=== PATIENT | male | born 1965 | race Caucasian/White ===

== ENCOUNTER 2021-05-08 07:12 | Outpatient (CLI) | payer BC, SELFPAY ==
--- NOTE | ~2021-05-08 | MR_ITS ---
EXAMINATION: MR shoulder LT wo con DATE: 05/08/2021 08:01 INDICATION: Unspecified dislocation of the left acromioclavicular joint. Left shoulder pain and limit ed range of motion. TECHNIQUE: Magnetic resonance imaging (MRI) of the left shoulder was performed without intravenous co ntrast. Sequences included axial PD-weighted FS FSE, coronal oblique PD-weighted FS FSE, coronal obli que T2-weighted FS FSE, sagittal PD-weighted FS FSE, and sagittal T1-weighted SE. COMPARISON: None. FINDINGS: Coracoacromial arch: The acromion undersurface is curved in morphology (type II). The coracoacromial ligament is normal. M oderate acromioclavicular osteoarthritis with small joint effusion. The joint capsules patulous both superiorly and posteriorly consistent with given history of prior acromioclavicular joint separation. There is mildly distracted small avulsion fracture involving the capsular attachment along the anter osuperior rim of the head of the clavicle. There is mild associated reactive marrow edema primarily t he lateral clavicle and mild surrounding soft tissue edema. The coracoclavicular ligament remains nor mal. Rotator cuff: Moderate supraspinatus and infraspinatus tendinopathy. Very small full-thickness tear within a few mi llimeter of the superior facet footplate of the supraspinatus tendon which measures approximately 3 m m AP. The teres minor tendon is normal. Mild subscapularis tendinopathy with very small partial-thick ness intrasubstance tear along the lateral lesser tuberosity footplate of the tendon. The flexor doin on of the footplate is proximally 3-4 mm craniocaudal and medial to lateral. Normal rotator cuff musc le bulk and signal. Biceps tendon, glenoid labrum and glenohumeral cartilage: Long head of the biceps tendon is normal. Amorphous increased signal consistent with degeneration at the posterosuperior and anteroinferior glenoid labrum without well-defined linear labral tear plane. Glenohumeral cartilage is normal. Fluid: Physiologic amount of fluid in the glenohumeral joint and biceps tendon sheath. No loose osteochondra l bodies. Small amount of fluid in the subacromial/subdeltoid bursa as well as the subcoracoid bursa which likely results from communication with the glenohumeral joint space through the full-thickness rotator cuff tear. Bones: Normal marrow signal aside from the acromioclavicular joint centered marrow edema. No other fractures or pathologic marrow replacing process. IMPRESSION: 1. Acromioclavicular joint separation with capsular tear, small minimally distracted avulsion capsula r avulsion fracture at the lateral clavicle and moderate sized acromioclavicular joint effusion. 2. Moderate supraspinatus and infraspinatus tendinopathy with very small full-thickness tear at the d istal supraspinatus. 3. Mild subscapularis tendinopathy with very small partial-thickness intrasubstance tear at the later al posterior tuberosity footplate. Reviewed, dictated and finalized at location A. [employer] IMPRESSION: 1. Acromioclavicular joint separation with capsular tear, small minimally distr acted avulsion capsular avulsion fracture at the lateral clavicle and moderate sized acromioclavicular joint effusion. 2. Moderate supraspinatus and infraspinatus tendinopathy with very small full-t hickness tear at the distal supraspinatus. 3. Mild subscapularis tendinopathy with very small partial-thickness intrasubst ance tear at the lateral posterior tuberosity footplate.
== END 2021-05-08 07:13 ==
PROVIDERS: PCP Internal Medicine; Visit Provider Orthopaedic Surgery
DX: S43.102A Unspecified dislocation of left acromioclavicular joint, initial encounter (principal); X58.XXXA Exposure to other specified factors, initial encounter
CPT/HCPCS: 73221

== ENCOUNTER → 2021-06-23 00:36 | Outpatient (CLI) | payer BC, SELFPAY ==
[2021-06-24 10:57] LABS: SARS-CoV-2 RNA PCR Negative
== END ==
PROVIDERS: PCP Internal Medicine; Visit Provider Otolaryngology
DX: Z01.812 Encounter for preprocedural laboratory examination (principal); Z20.822 Contact with and (suspected) exposure to COVID-19
CPT/HCPCS: C9803; U0003; U0005

== ENCOUNTER 2021-06-26 01:18 | Day surgery (SDC) | payer BC, SELFPAY ==
[2021-06-20 14:10] VITALS: BMI 32.3
--- NOTE | 2021-06-20 15:03 | SUR.PREOP ---
Report to the Outpatient Waiting Room, entrance under the green pavilion located off [facility], at time _0615 on date _06/26/21 . OR Time: _08 - A mask is required within the hospital. Preoperative COVID Testing Requirements: No COVID Test needed if: (proof is required; if not received patient will have Rapid Test prior to entry) - Patient has received COVID Vaccine at least 14 days prior to procedure date or - Patient has positive COVID test result within last 90 days of surgery date. COVID Test needed if above criteria is not met If not COVID vaccinated a COVID test must be conducted within 72 hours of surgery and patient is asked to isolate self from time of testing until procedure. You will go to the [facility] for your COVID testing. The [facility] is located at the corner of [address] [facility]. You will only be called if COVID results are positive and your surgeon may reschedule your elective surgery date. Patients may have clear liquids (water, carbonated beverages, clear teas, apple juice) until 3 hours prior to surgery with a maximum of 20 ounces. - No food from midnight until time of surgery - Infants may have breast milk until 4 hours before surgery, infant formula 6 hours prior to surgery. - Children will be allowed to drink immediately following surgery. If applicable, please bring a bottle or sippy cup to assist with drinking. Juice, water, soda, and popsicles are readily available. For infants on formula, please bring formula the day of surgery. Pacifiers are allowed. Take the following medications with a SIP of water the morning of surgery: ___n/a Medications to discontinue per physician n/a Date to take last dose Please no make-up, nail japanese, hairspray, perfume, deodorant, or body powder the day of surgery. No jewelry (including any body piercings) or valuables the day of surgery, leave them at home. Please take a shower or bath the night before, or the morning of, surgery with an antibacterial soap. Wear comfortable, loose fitting clothing. Children are encouraged to wear pajamas. - Jewelry must be removed prior to entering the operating room. Rings and piercings that are not removed may be cut off. - The hospital will not accept responsibility for valuables. - Please leave all valuables, including medications, at home the day of surgery. If you are going home after surgery, a licensed star route mail driver must drive you home. - NO public transportation without another adult. - We recommend that an adult stay with you for 24 hours following discharge. - We also recommend that you do not drive, make important decision, drink alcoholic beverages, or take any drugs that were not prescribed by your health care provider for at least 24 hours after your discharge time. For Pediatric surgeries, we recommend two adults accompany the child home (only one inside the building at this time). Follow any additional instructions given to you from your surgeon. Telephone instructions given to jae coyne___and asked if any additional questions and then verbalized understanding. Patient advised to call surgeon office or pre surgery nurse liaison [phone] if any additional questions.
--- NOTE | 2021-06-23 08:39 | PM.HPGS ---
History of Present Illness History of Present Illness Consent: Risks, benefits, and alternatives have been discussed and questions answered. Patient agrees to proceed with procedure. Chief complaint: mid line neck mass Narrative: Pj Luther is a 56 year old male with a large approximately 6 cm midline lipomatous neck mass Review of Systems Review of Systems: All systems reviewed & are unremarkable except as noted in HPI and below PMFSH Past Medical History Medical History Acromioclavicular joint separation, type 2 Anxiety Claustrophobia Fracture of scaphoid bone of left wrist Hypertension Rotator cuff tear, left Scapholunate advanced collapse of left wrist Wears glasses Surgical History Surgical History History of carpal tunnel release 2019, Dr. Alvarado Family History Family History Sibling Hypertension Patient's brother is in good health Father Patient's father is Mother Family history of premature coronary heart disease, Onset Age: 65 Other Heart disease Social History Social History Smoking status: Never smoker Alcohol intake: former Substance use: never Substance use type: does not use Gender identity (if verbalized by the patient): Male Spiritual care concerns: No Meds Home Medications and Allergies Home Medications Medication Instructions Recorded Confirmed Type lisinopril 20 mg tablet 20 mg PO DAILY 06/17/20 06/20/21 History meloxicam 15 mg tablet 15 mg PO DAILY #30 tablet 07/26/20 06/20/21 Rx fenofibrate 160 mg tablet 160 mg PO DAILY 01/29/21 06/20/21 History oxcarbazepine 150 mg tablet 150 mg PO BID 01/29/21 06/20/21 History Allergies Allergy/AdvReac Type Severity Reaction Status Date / Time Penicillins Allergy Intermediate Hives Verified 06/20/21 13:42 Exam Narrative: chest clear heart without murmurs abdomen soft extremities negative large midline soft neck mass approximately 6 cm Assessment and Plan Additional Plan plan excision neck mass
--- NOTE | 2021-06-25 15:56 | WPDANESEPPF ---
Anes - Initial Pre Proc Eval Procedure: Operation Date: 06/26/21 07:30 Proposed Procedures p Excision Midline Neck Mass - Pj Pena MD Date/Time: 06/25/21 15:56 Surgeon: Pj Pena MD Pre Op Diagnosis: mid line neck mass Patient Data Age: 56 Gender: M Height: 1.78 m Weight: 102.27 kg Allergies Allergy/AdvReac Type Severity Reaction Status Date / Time Penicillins Allergy Intermediate Hives Verified 06/26/21 06:19 Home Medications Medication Instructions Recorded Confirmed Type lisinopril 20 mg tablet 20 mg PO DAILY 06/17/20 06/26/21 History meloxicam 15 mg tablet 15 mg PO DAILY #30 tablet 07/26/20 06/26/21 Rx fenofibrate 160 mg tablet 160 mg PO DAILY 01/29/21 06/26/21 History oxcarbazepine 150 mg tablet 150 mg PO BID 01/29/21 06/26/21 History Patient hx anesthesia problems: none Family hx anesthesia problems: none Results Review: All pre-operative results and documents have been reviewed as part of the pre-operative evaluation. [facility] Past Medical History Medical History (Updated 06/25/21 @ 15:57 by Mathew Mcfadden MD) Acromioclavicular joint separation, type 2 Anxiety Claustrophobia Fracture of scaphoid bone of left wrist Hypertension Mass in neck Obesity Rotator cuff tear, left Scapholunate advanced collapse of left wrist Wears glasses Surgical History Surgical History History of carpal tunnel release 2019, Dr. Alvarado Family History Family History Sibling Hypertension Patient's brother is in good health Father Patient's father is Mother Family history of premature coronary heart disease, Onset Age: 65 Other Heart disease Social History Social History Smoking status: Never smoker Alcohol intake: former Substance use: never Substance use type: does not use Living arrangements: with family Gender identity (if verbalized by the patient): Male Spiritual care concerns: No Anes - Eval Final PreProcedure Day of Procedure 06/25/21 15:56 Patient weight: obese Heart: regular rate and rhythm Lungs: clear to auscultation and normal air movement Airway: Mallampati scale class II Neurological: alert and oriented Last oral intake: >/= 8 hours ASA classification: III Emergent: no Anesthetic plan: proceed Anesthesia type and monitoring: general ETT Results Review: All pre-operative results and documents have been reviewed as part of the pre-operative evaluation. Informed Consent: The patient's anesthetic plan and its attendant risks and benefits were discussed with the patient/family/POA. Questions were solicited and answers provided to the satisfaction of the patient/family/POA.
[2021-06-26] VITALS (8 sets, daily range): BP systolic 120–158; BP diastolic 86–99; PULSE 80–99; RESP 14–18; TEMP 36.1; O2SAT 95–99
--- NOTE | 2021-06-26 06:24 | WPDHPUPDATE1 ---
History and Physical Update Update Date/Time: 06/26/21 06:24 History and Physical has been reviewed, including an updated exam of the patient. There are NO changes in the patient's condition. Risks, benefits, and alternatives have been discussed and questions answered. Patient agrees to proceed with procedure.
[2021-06-26] MEDS: LACTATED RINGERS 1,000 ML 30 ML IV CONT (06:28)
--- NOTE | 2021-06-26 07:14 | SUR.PREOP ---
[address] la about ekg and pt history ,waived ekg.
[2021-06-26] MEDS: LIDO 1%/EPINEPHRINE/PF 1:200,000 30 ML VIAL XX (07:36)
--- NOTE | 2021-06-26 08:05 | W.PM.PROC2 ---
Procedure Note - Detailed Date of Procedure 06/26/21 Pre-op Diagnosis mid line neck mass Post-op Diagnosis same Procedure Performed Excision of large lipoma level of the sternum Surgeon Pj Pena MD Anesthesia general Description of Procedure Patient was prepped and draped in usual fashion general anesthesia the swelling was under the clavicle maximally 5 cm was injected with xylocaine with adrenaline incision was made skin flaps elevated large lipomatous masses were removed scissors and Bovie hemostasis was obtained electrocautery Castillo drain placed and closed in layers of 3-0 chromic and subcuticular Monocryl
[2021-06-26] MEDS: fentaNYL CITRATE INJ (*CRX) 100 MCG/2 ML VIAL 25 MCG IV PUSH ×2 (08:26→08:29)
[2021-06-26] MEDS: HYDROcodone/acetaminophen (*CRX) 5-325 MG TABLET 1 TAB PO (09:34)
[2021-06-26] MEDS: ONDANSETRON INJ 4 MG/2 ML VIAL IV PUSH (10:11)
== END 2021-06-26 10:30 | disposition home or self-care (01) ==
PROVIDERS: PCP Internal Medicine; Visit Provider Otolaryngology
PROC: (CPT 21552; principal; 2021-06-26 07:30)
DX: D17.0 Benign lipomatous neoplasm of skin and subcutaneous tissue of head, face and neck (principal); I10 Essential (primary) hypertension; F41.9 Anxiety disorder, unspecified; E66.9 Obesity, unspecified; Z68.35 Body mass index [BMI] 35.0-35.9, adult
CPT/HCPCS: 21552; 88304; A9270; C9803; J1100; J2250; J2405; J2704; J3010; J7120; U0003; U0005